=== PATIENT | female | born 1955 | race Caucasian/White ===

== ENCOUNTER 2017-07-04 17:15 | Emergency (ER) | payer BC ==
--- NOTE | 2017-07-04 17:38 | PDOC ---
History of Present Illness - General History Source: Patient Exam Limitations: No Limitations - History of Present Illness Initial Comments: 07/04/17 17:47 The patient is a 61 year old female, with no significant past medical history, who presents to the emergency department s/p dog bite to the right palm, a laceration to the right palm. As per patient, she went to pet a family members dog when it bit her right palm. She reports that the dog is up to date with its shots. She is not up to date with her tetanus shot. She denies recent fevers, chills, headache or dizziness. She denies recent nausea, vomit, diarrhea or constipation. She denies recent dysuria, frequency, urgency or hematuria. She denies recent chest pain or shortness of breath. Allergies: NKA Primary Care Physician: Dr. Eloina Kim <Yudy Meneses - Last Filed: 07/04/17 17:47> <Amari Hassan - Last Filed: 07/04/17 18:14> - General Chief Complaint: Bite Stated Complaint: DOG BITE Time Seen by Provider: 07/04/17 17:38 Past History <Yudy Meneses - Last Filed: 07/04/17 17:47> <Amari Hassan - Last Filed: 07/04/17 18:14> - Past Medical History Allergies/Adverse Reactions: Allergies Allergy/AdvReac Type Severity Reaction Status Date / Time No Known Allergies Allergy Verified 07/04/17 17:38 Home Medications: Ambulatory Orders Amoxicillin/Potassium Clav [Augmentin 875-125 Tablet] 1 each PO BID #14 tablet 07/04/17 Cholecalciferol (Vitamin D3) [Vitamin D] 2,000 unit PO DAILY 07/04/17 Methimazole [Tapazole -] 10 mg PO MOTUWETHFR 07/04/17 Mv-Min/Iron/Folic/Calcium/Vitk [Women's Daily Formula Tablet] 1 each PO DAILY Review of Systems - Review of Systems Integumentary: Yes: Other (Laceration to the Right Palm.) All Other Systems: Reviewed and Negative <Yudy Meneses - Last Filed: 07/04/17 17:47> *Physical Exam - Physical Exam Comments: 07/04/17 17:48 General Appearance: Yes: Appropriately Dressed, Nourished. No: Apparent Distress, Disheveled, Mild Distress, Moderate Distress, Severe Distress, Alcohol on Breath, Intoxicated, Cachetic, Obese, Thin, Other HEENT: positive: Normal Voice. negative: Hearing Decreased, Hearing Grossly Normal, Excessive drooling, Other + Integumentary: positive:(+) 4cm laceration to the right palm without active bleeding. Normal Color, Dry, Warm. negative: Cyanotic, Erythema, Jaundice, Mottled, Pale, Cold, Clammy, Diaphoresis, Moist, Hives, Petechiae, Rash, Swelling, Ecchymosis, Bruising, Other Neurologic: positive: Fully Oriented, Alert, Normal Mood/Affect, Normal Response. negative: Confused, Disoriented, Depressed Affect, Other <Yudy Meneses - Last Filed: 07/04/17 17:47> Procedures - Laceration/Wound Repair Right Hand Wound Length: 2.6 to 5.0 cm Wound Explored: clean Wound's Depth, Shape: into muscle (palmar aspect 4 cm in length with minimal bleeding), irregular Anesthesia: 1% Lidocaine (2 cc 1% Lidocaine injected into wound) Wound Repaired With: Sutures Suture Size/Type: 5:0, nylon Number of Sutures: 3 Layer Closure: No Progress: 07/04/17 18:10 Pt tolerated procedure well, area approximated well, 3 sutures loosely placed due to dog bite and increase risk of infection, pt understands risks and benefits at this time. <Amari Hassan - Last Filed: 07/04/17 18:14> Progress Note - Progress Note Progress Note: Pt with dog bite, laceration to right palm, minimal bleeding Will suture loosely and place on Augmentin Tetanus to be given Pt is in agreement with plan. Nurse Jah reporting Dog Bite Hand cleaned and soaked in saline and betadine. <Amari Hassan - Last Filed: 07/04/17 18:14> *DC/Admit/Observation/Transfer - Attestations Scribe Attestion: 07/04/17 17:53 Documentation prepared by Yudy Meneses, acting as medical assistant float for Amari Hassan MD. <Yudy Meneses - Last Filed: 07/04/17 17:47> - Discharge Dispostion Admit: No <Amari Hassan - Last Filed: 07/04/17 18:14> Diagnosis at time of Disposition: Laceration of hand Qualifiers: Encounter type: initial encounter Foreign body presence: without foreign body Laterality: right Qualified Code(s): S61.411A - Laceration without foreign body of right hand, initial encounter Dog bite Qualifiers: Encounter type: initial encounter Qualified Code(s): W54.0XXA - Bitten by dog, initial encounter - Discharge Dispostion Disposition: HOME Condition at time of disposition: Good - Referrals Referrals: Eloina Kim MD [Primary Care Provider] - - Patient Instructions Printed Discharge Instructions: DI for Animal Bites, DI for Laceration Repair - - Simple Additional Instructions: Ice, Motrin, rest Augmentin 875 mg 2x/day for 7days Remove sutures in 7-10 days If redness, fever or drainage return to ER - Post Discharge Activity
[2017-07-04 17:50] VITALS: BP 157/97; PULSE 98; TEMP 98.1; BMI 25.4
[2017-07-04] MEDS ORDERED: AMOX TR/POT CLAV 875MG/125MG TABLETS (FP) PO ONE (18:00)
[2017-07-04] MEDS ORDERED: AMOX TR/POT CLAV 875MG/125MG TABLETS (FP) ONE (18:04)
[2017-07-04] MEDS ORDERED: DIPHTH,PERTUSS(ACELL),TET 0.5 ML DISP.SYRIN IM ONE (18:04)
== END 2017-07-04 18:28 | disposition home or self-care (01) ==
LOC: FER 17:15
PROC: 0HQFXZZ Repair Right Hand Skin, External Approach (ICD-10-PCS; principal; 2017-07-04)
PROC: 3E0234Z Introduction of Serum, Toxoid and Vaccine into Muscle, Percutaneous Approach (ICD-10-PCS; 2017-07-04)
DX: S61.451A Open bite of right hand, initial encounter (principal); W54.0XXA Bitten by dog, initial encounter; Y93.89 Activity, other specified; Y92.9 Unspecified place or not applicable
CPT/HCPCS: 90715; 99282-25

== ENCOUNTER 2020-06-21 06:54 | Emergency (ER) | payer BC ==
[2020-06-21 07:01] VITALS: TEMP 97.4; BMI 25.7
[2020-06-21] MEDS ORDERED: ACETAMINOPHEN 325 MG TABLET (FP) PO ONE (07:29)
[2020-06-21] MEDS ORDERED: DIPHTH,PERTUSS(ACELL),TET 0.5 ML DISP.SYRIN IM ONE ×2 (07:52→08:19)
[2020-06-21] MEDS ORDERED: ACETAMINOPHEN 325 MG TABLET (FP) ONE (08:19)
[2020-06-21 08:44] LABS: BASO % 0.3 % (0-2.0); EOS % 0.6 % (0-4.5); HEMATOCRIT 39.8 % (32.4-45.2); HEMOGLOBIN 13.5 GM/dL (10.7-15.3); LYMPH % 12.9 % (8-40); MCH 31.9 pg (25.7-33.7); MEAN CELL VOLUME 93.9 fl (80-96); MEAN PLT VOLUME 7.4 fl (7.5-11.1); MONO % 3.8 % (3.8-10.2); NEUT % 82.4 % (42.8-82.8); PLATELET COUNT 259 K/MM3 (134-434); RBC 4.24 M/mm3 (3.60-5.2); RDW 13.3 % (11.6-15.6); WHITE BLOOD COUNT 7.4 K/mm3 (4.0-10.0)
[2020-06-21 09:04] LABS: CHLORIDE 107 mmol/L (98-107); POTASSIUM 3.6 mmol/L (3.5-5.1); SODIUM 140 mmol/L (136-145)
[2020-06-21 09:07] LABS: ALBUMIN 3.9 g/dl (3.4-5.0); CALCIUM 8.8 mg/dL (8.5-10.1)
[2020-06-21 09:08] LABS: ANION GAP 4 MMOL/L (8-16); BLOOD UREA NITROGEN 13.1 mg/dL (7-18); CO2 29 mmol/L (21-32); GLUCOSE,RANDOM 107 mg/dL (74-106)
[2020-06-21 09:10] LABS: SGPT/ALT 27 U/L (13-61)
[2020-06-21 09:11] LABS: CREATININE 0.9 mg/dL (0.55-1.3); SGOT/AST 26 U/L (15-37)
[2020-06-21 09:12] LABS: BILIRUBIN,TOTAL 0.7 mg/dL (0.2-1); TOT PROT 7.2 g/dl (6.4-8.2)
[2020-06-21 09:13] LABS: ALK PHOS 86 U/L (45-117)
[2020-06-21] MEDS ORDERED: SODIUM CHLORIDE 0.9% 500 ML INFUS.BAG IV ONE (09:32)
[2020-06-21 11:38] VITALS: BP 135/82; PULSE 86
== END 2020-06-21 11:40 | disposition home or self-care (01) ==
LOC: JER 06:54
PROC: 3E0234Z Introduction of Serum, Toxoid and Vaccine into Muscle, Percutaneous Approach (ICD-10-PCS; principal; 2020-06-21)
PROC: 0HQ1XZZ Repair Face Skin, External Approach (ICD-10-PCS; principal; 2020-06-21)
DX: R55 Syncope and collapse (principal); S01.81XA Laceration without foreign body of other part of head, initial encounter; W19.XXXA Unspecified fall, initial encounter
CPT/HCPCS: 36415; 70450-TC; 71045-TC-FY; 72125-TC; 80053; 82550; 84443; 84484; 85025; 90715; 93005; 93010; 99285-25

== ENCOUNTER 2020-06-28 11:29 | Emergency (ER) | payer BC ==
[2020-06-28 11:33] VITALS: BP 139/91; PULSE 95; TEMP 97.8; BMI 56.0
== END 2020-06-28 11:59 | disposition home or self-care (01) ==
LOC: JERFT 11:29
DX: Z48.02 Encounter for removal of sutures (principal)
CPT/HCPCS: 99281-25